=== PATIENT | male | born 1975 | race American Indian/Alaskan Native ===

== ENCOUNTER 2021-06-16 19:49 | Emergency (ER) | payer BC, MEDICAID ==
[~2021-06-16] VITALS: Ht 170.2 cm; Wt 84.4 kg
[~2021-06-16 19:49] MED LIST: CYCLOBENZAPRINE10 MG PO; NORCO 5-325 TA1 EACH PO; PROVENTIL HFA6.7 GM INH; TESSALON PERLE100 MG PO
[2021-06-16] MEDS ORDERED: ULTRAM50 MG PO (23:49)
[2021-06-17] MEDS ORDERED: HYDROCODON-ACE1 EA10 PO (00:04)
== END 2021-06-17 00:16 | disposition home or self-care (01) ==
LOC: ED 19:49
DX: R10.9 Unspecified abdominal pain (principal); Z87.891 Personal history of nicotine dependence
CPT/HCPCS: 74176; 81001; 85025; 96374; 99284-25; J1885

== ENCOUNTER 2023-12-20 07:24 | Emergency (ER) | payer BC, MEDICAID ==
[~2023-12-20] VITALS: Ht 170.2 cm; Wt 82.0 kg
[~2023-12-20 07:24] MED LIST changes: +HYDROCODON-ACE1 EA10 PO; +ULTRAM50 MG PO
[2023-12-20] MEDS ORDERED: METOCLOPRAMIDE HCL 10 MG/2 ML SDV IV ONE (07:30)
[2023-12-20] MEDS ORDERED: SODIUM CHLORIDE 0.9% 1,000 ML IV PRN ×2 (07:30→09:00)
[2023-12-20] MEDS ORDERED: diphenhydrAMINE HCL 50 MG/ML VIAL IV ONE (07:30)
[2023-12-20 07:41] LABS: BASOPHILS 0.8 % (0-2); EOSINOPHILS 0.3 % (0-6); HEMATOCRIT 48.7 % (35.0-50.0); HEMOGLOBIN 17.2 g/dL (12.0-18.0); LYMPHOCYTES 36.4 % (24-44); MCH 32.8 (27-36); MCHC 35.3 g/dl (30-36); MCV 92.8 fl (81-99); MONOCYTES 8.8 % (0-12); NEUTROPHILS 53.7 % (39-80); PLATELET COUNT 295 K/uL (140-440); RBC 5.24 M/ul (4.3-5.7); RDW 13.7 (10.5-15.0)
[2023-12-20] MEDS ORDERED: GLUCAGON,HUMAN RECOMBINANT 1 MG/ML VIAL IV ONE (07:45)
[2023-12-20] MEDS ORDERED: FAMOTIDINE 20 MG/ 2 ML VIAL IV ONE (07:45)
[2023-12-20 07:56] LABS: ALBUMIN 3.9 g/dL (3.4-5.0); ALBUMIN/GLOBULIN RATIO 0.95 (1.1-2.4); ANION GAP 19.7 (7-21); BILIRUBIN, TOTAL 1.1 ng/dL (0.2-1.0); BUN/CREATININE RATIO 11.57 (6.0-28.6); CALCIUM 8.3 mg/dL (8.5-10.1); CREATININE, SERUM 1.21 mg/dL (0.70-1.30); POTASSIUM 3.7 mmol/L (3.5-5.1)
[2023-12-20 10:35] LABS: BILIRUBIN, URINE NEGATIVE (negative); BLOOD/HGB, URINE TRACE-L (Negative); KETONE, URINE NEGATIVE (Negative); LEUK ESTERASE, URINE NEGATIVE (negative); NITRITE, URINE NEGATIVE (negative)
[2023-12-20 10:49] LABS: BACTERIA, URINE NONE SEEN /hpf (negative); CASTS, URINE NONE SEEN \\lpf; COLLECTION TYPE, URINE CLEAN CATCH; CRYSTALS, URINE NONE SEEN (0-1+); EPITHELIAL CELLS, URINE 0 /lpf (0-1+); RED BLOOD CELLS, URINE 0-1 /hpf (0-5); REFLEX CULTURE, URINE No (No)
[2023-12-20 10:56] LABS: AMPHETAMINES, URINE NEGATIVE (NEGATIVE); BARBITURATES, URINE NEGATIVE (NEGATIVE); BENZODIAZEPINE, URINE NEGATIVE (NEGATIVE); BUPRENORPHINE, URINE NEGATIVE (NEGATIVE); CANNABINOID, URINE NEGATIVE (NEGATIVE); COCAINE, URINE NEGATIVE (NEGATIVE); ECSTASY, URINE NEGATIVE (NEGATIVE); FENTANYL, URINE NEGATIVE (NEGATIVE); METHADONE, URINE NEGATIVE (NEGATIVE); OPIATES, URINE NEGATIVE (NEGATIVE); OXYCODONE, URINE NEGATIVE (NEGATIVE); PHENCYCLIDINE, URINE NEGATIVE (NEGATIVE)
[2023-12-20] MEDS ORDERED: ONDANSETRON ODT4 MG SL (11:23)
[2023-12-20] MEDS ORDERED: AMOXICILLIN500 MG PO (11:23)
[2023-12-20] MEDS ORDERED: PRILOSEC OTC20 MG PO (11:23)
[2023-12-20] MEDS ORDERED: HYDROCODON-ACE1 EA10 PO (11:23)
[2023-12-20 11:25] VITALS: BP 102/80
== END 2023-12-20 11:30 | disposition home or self-care (01) ==
LOC: ED 07:24
PROVIDERS: Emergency Medicine
DX: K20.90 Esophagitis, unspecified without bleeding (principal); R11.10 Vomiting, unspecified
CPT/HCPCS: 36415; 70360; 70491; 71045; 80053; 80307; 81001; 83690; 85025; 87651; G0480; J1200; J1610; J2765; J7030